=== PATIENT | female | born 1980 | race Caucasian/White ===

== ENCOUNTER → 2017-04-25 | Outpatient (CLI) | payer BC ==
--- NOTE | 2017-04-26 13:09 | RADRPT ---
PROCEDURE: Complete abdominal ultrasound. CLINICAL INDICATION: Abdominal pain TECHNIQUE: Abdi scale and color doppler ultrasound images of the abdomen. COMPARISON: None FINDINGS: Pancreas: Visualized portions appear of normal echogenicity, no focal lesions. Liver: Morphology: Normal in size and contour. Echogenicity: Normal. Focal lesions: None. Main portal vein: Patent with hepatopetal flow. Biliary System: Normal appearing gallbladder wall. No gallstones seen. No intrahepatic biliary dilatation. Common bile duct diameter: 1.9 mm Kidneys: Right length: 10.3 cm. Right renal cortical thickness is preserved. Left length: 10.7 cm. Left renal cortical thickness is preserved. Normal echogenicity. No hydronephrosis. No renal calculi. No focal renal lesions. Spleen: Normal in size, no focal lesions. No free fluid identified. Normal caliber of the partially visualized aorta. IMPRESSION: Normal gallbladder without gallstones. Normal examination. RPTAT: AADD .Babar Alcantara MD, MD Date Time Electronically viewed and signed by .Babar Alcantara MD, on 04/26/2017 13:09 .B/
== END | disposition home or self-care (01) ==
LOC: U/S 14:45
DX: K81.9 Cholecystitis, unspecified (principal); R10.9 Unspecified abdominal pain
CPT/HCPCS: 76700